=== PATIENT | female | born 1980 | race Caucasian/White ===

== ENCOUNTER 2016-12-11 07:59 | Emergency (ER) | payer OTHER ==
--- NOTE | 2016-12-11 10:43 | DIAGNOSTIC IMAGING REPORT ---
PROCEDURE: US OB 1ST TRIMESTER W/TRANSVAG INDICATION: ABNORMAL BLEEDING TECHNIQUE: Akins scale, color, and spectral Doppler transabdominal sonographic images of the first trimester gravid uterus were obtained. COMPARISON: None. FINDINGS: TRANSABDOMINAL SCANS: The gravid uterus contains a fundal gestational sac with a moderate residual response. No perigestational hemorrhage. The cervix is closed. Gestational sac measures 12 mm which corresponds to 6 weeks and 1 day A yolk sac was visible. Maternal ovaries appear normal with a corpus luteum cyst visualized on the right ovary. No free pelvic fluid. IMPRESSION: 1. Single intrauterine gestational sac with gestational age of 6 weeks and 1 day and estimated due date of 08/05/2018 2. Closed cervix and no perigestational hemorrhage.
--- NOTE | 2016-12-11 11:29 | ED CLINICAL REPORT ---
Clinical Report - Physicians/Mid Levels [facility] [address] [place] [address] 12/11/2016 7:59 Patient: LEON FALK Time Seen: 08:38 Lambert 19 2016. Arrived- By private vehicle. Historian- patient. Note: (HX: Currently : 9 weeks .). HISTORY OF PRESENT ILLNESS Chief Complaint: VAGINAL BLEEDING. This started today 1st . Has not had OB US yet. and still present. The symptoms are described as moderate. Modifying factors. Not worsened by anything. Not relieved by anything. The patient has had abnormal bleeding. No abdominal pain, pelvic pain, vaginal pain, low back pain or flank pain. No vaginal discharge, pain with urination, urinary frequency, urgency of urination or hematuria. Similar symptoms previously: None. Recent medical care: Not recently seen/assessed. REVIEW OF SYSTEMS No nausea, vomiting, diarrhea, urinary frequency or hematuria. No pelvic pain, vaginal discharge or difficulty with urination. All systems otherwise negative, except as recorded above. PAST HISTORY ( Migraine Headache. Anxiety Reaction.). Additional Surgeries: no known surgeries. Medications: CeleXA Oral 10mg, daily. Allergies: Erythromycin. SOCIAL HISTORY Never smoker. No alcohol use or drug use. ADDITIONAL NOTES The nursing notes have been reviewed. PHYSICAL EXAM Vital Signs: 12/11/2016 08:09 BP: 122/76. HR: 96. RR: 14. O2 saturation: 99%. Temp: 98.5 F. Pain level now: 0/10. Have been reviewed as normal. Appearance: Alert. Oriented X3. No acute distress. HEENT: Normal external inspection. ENT: Pharynx normal. CVS: Heart sounds normal. Rate normal. Rhythm normal. Respiratory: No respiratory distress. Breath sounds normal. Abdomen: Soft and nontender. Bowel sounds normal. No organomegaly. No mass. : Slight vaginal bleeding, consisting of dark blood, via the cervical os. No vaginal discharge. Cervical os closed. No tissue present. No cervicitis. No herpes-like lesions. Bimanual exam normal. (Female Aubrey Morel present for exam). Skin: Skin warm and dry. Normal skin color. No rash. Neuro: Oriented X 3. LABS, X-RAYS, AND EKG Pelvic Sonogram: Single intrauterine gestational sac with gestational age of 6 weeks and 1 day and estimated due date of 08/05/2018 2. Closed cervix and no perigestational hemorrhage. Study type: bedside transvaginal and obstetrical evaluation. The study was interpreted by the radiologist and discussed with the radiologist. Prior studies were not available for comparison. Laboratory Tests: UA-Culture if indicated: (OZZY: 12/11/2016 08:20) ( [facility] 12/11/2016 08:44) Final results Test Result Flag Units (Reference) URINE COLOR YELLOW URINE APPEARANCE CLEAR URINE GLUCOSE NEGATIVE (NEGATIVE) URINE BILIRUBIN NEGATIVE (NEGATIVE) URINE KETONE NEGATIVE (NEGATIVE) URINE SPECIFIC GRAVITY 1.015 (1.010-1.030) URINE PH 8.0 (5.0-8.0) URINE PROTEIN NEGATIVE (NEGATIVE) URINE UROBILINOGEN 0.2 EU/dL (0.2-1.0) URINE NITRITE NEGATIVE (NEGATIVE) URINE BLOOD TRACE-INTACT (NEGATIVE) URINE LEUK ESTERASE NEGATIVE (NEGATIVE) URINE RBC NONE SEEN rbc/hpf (0-1) URINE WBC 0-1 wbc/hpf (0-1) URINE EPITHELIAL CELLS 0-1 EPI/hpf (0-5) URINE BACTERIA TRACE (<1+) (NONE SEEN) URINE COMMENT CULT NOT INDICATED URINE CULTURES ARE SET-UP BASED ON THE FOLLOWING CRITERIA:POSITIVE NITRITEPOSITIVE LEUKOCYTE ESTERASEGREATER THAN 10 WHITE BLOOD CELLSMODERATE (2+) OR GREATER BACTERIA Urine: (OZZY: 12/11/2016 08:20) ( [facility] 12/11/2016 08:34) Final results Test Result Flag Units (Reference) URINE POSITIVE CBC w Diff: (OZZY: 12/11/2016 09:04) ( [facility] 12/11/2016 09:18) Final results Test Result Flag Units (Reference) WHITE BLOOD COUNT 8.4 K/uL (4.5-11.5) RED BLOOD COUNT 4.67 M/uL (4.00-5.20) HEMOGLOBIN 14.3 gm/dL (12.0-16.0) HEMATOCRIT 42.9 % (36.0-46.0) MEAN CELL VOLUME 92 fL (80-100) MEAN CORPUSCULAR HGB 31 pg (26-34) MEAN CORPUSCULAR HGB CONC 33 g/dL (31-37) RED CELL DISTRIBUTION WIDTH 13.4 % (11.6-14.8) PLATELET COUNT 322 K/uL (150-400) LYMPH % 31.7 % (25-40) MONO % 3.0 % (3-14) GRANULOCYTE % 65.3 (53-90) Serum Quantitative: (OZZY: 12/11/2016 09:04) ( [facility] 12/11/2016 09:57) Final results Test Result Flag Units (Reference) BETA HCG, QUANTITATIVE 4172 mIU/mL REFERENCE RANGE:Adult Males: <2 mIU/mLNon- Females: <6 mIU/mL Females:Approximate Approximate hCGGestational Age Range (mIU/mL) 0-1 week 0-501-2 weeks 40-3002-3 weeks 100-29665-0 weeks 500-40044-1 months 5,000-200,0002-3 months 10,000-100,0002nd trimester 3,000-50,0003rd trimester 1,000-50,000 Type & Rh: (OZZY: 12/11/2016 09:04) ( [facility] 12/11/2016 09:33) Final results Test Result Flag Units (Reference) PATIENT BLOOD TYPE A Positive . PROGRESS AND PROCEDURES Disposition: Discharged home in good condition. Condition: good. CLINICAL IMPRESSION Mild vaginal bleeding. INSTRUCTIONS (Have your labs drawn on Sunday. Return with increased bleeding or lower abdominal pain). Your Current Medications: CONTINUE TAKING THE FOLLOWING MEDICATIONS: CeleXA Oral : 10mg daily. Follow-up: Follow up with your doctor Sunday as scheduled. Screening today revealed the patient's blood pressure to be in the normal range. (Electronically signed by Emmanuel Briceño Dr. 12/11/2016 16:24)
--- NOTE | 2016-12-11 11:29 | ED CLINICAL REPORT ---
Clinical Report - Physicians/Mid Levels [facility] [address] [place] [address] 12/11/2016 7:59 Patient: LEON FALK Time Seen: 08:38 Lambert 19 2016. Arrived- By private vehicle. Historian- patient. Note: (HX: Currently : 9 weeks .). HISTORY OF PRESENT ILLNESS Chief Complaint: VAGINAL BLEEDING. This started today 1st . Has not had OB US yet. and still present. The symptoms are described as moderate. Modifying factors. Not worsened by anything. Not relieved by anything. The patient has had abnormal bleeding. No abdominal pain, pelvic pain, vaginal pain, low back pain or flank pain. No vaginal discharge, pain with urination, urinary frequency, urgency of urination or hematuria. Similar symptoms previously: None. Recent medical care: Not recently seen/assessed. REVIEW OF SYSTEMS No nausea, vomiting, diarrhea, urinary frequency or hematuria. No pelvic pain, vaginal discharge or difficulty with urination. All systems otherwise negative, except as recorded above. PAST HISTORY ( Migraine Headache. Anxiety Reaction.). Additional Surgeries: no known surgeries. Medications: CeleXA Oral 10mg, daily. Allergies: Erythromycin. SOCIAL HISTORY Never smoker. No alcohol use or drug use. ADDITIONAL NOTES The nursing notes have been reviewed. PHYSICAL EXAM Vital Signs: 12/11/2016 08:09 BP: 122/76. HR: 96. RR: 14. O2 saturation: 99%. Temp: 98.5 F. Pain level now: 0/10. Have been reviewed as normal. Appearance: Alert. Oriented X3. No acute distress. HEENT: Normal external inspection. ENT: Pharynx normal. CVS: Heart sounds normal. Rate normal. Rhythm normal. Respiratory: No respiratory distress. Breath sounds normal. Abdomen: Soft and nontender. Bowel sounds normal. No organomegaly. No mass. : Slight vaginal bleeding, consisting of dark blood, via the cervical os. No vaginal discharge. Cervical os closed. No tissue present. No cervicitis. No herpes-like lesions. Bimanual exam normal. (Female Aubrey Morel present for exam). Skin: Skin warm and dry. Normal skin color. No rash. Neuro: Oriented X 3. LABS, X-RAYS, AND EKG Pelvic Sonogram: Single intrauterine gestational sac with gestational age of 6 weeks and 1 day and estimated due date of 08/05/2018 2. Closed cervix and no perigestational hemorrhage. Study type: bedside transvaginal and obstetrical evaluation. The study was interpreted by the radiologist and discussed with the radiologist. Prior studies were not available for comparison. Laboratory Tests: UA-Culture if indicated: (OZZY: 12/11/2016 08:20) ( [facility] 12/11/2016 08:44) Final results Test Result Flag Units (Reference) URINE COLOR YELLOW URINE APPEARANCE CLEAR URINE GLUCOSE NEGATIVE (NEGATIVE) URINE BILIRUBIN NEGATIVE (NEGATIVE) URINE KETONE NEGATIVE (NEGATIVE) URINE SPECIFIC GRAVITY 1.015 (1.010-1.030) URINE PH 8.0 (5.0-8.0) URINE PROTEIN NEGATIVE (NEGATIVE) URINE UROBILINOGEN 0.2 EU/dL (0.2-1.0) URINE NITRITE NEGATIVE (NEGATIVE) URINE BLOOD TRACE-INTACT (NEGATIVE) URINE LEUK ESTERASE NEGATIVE (NEGATIVE) URINE RBC NONE SEEN rbc/hpf (0-1) URINE WBC 0-1 wbc/hpf (0-1) URINE EPITHELIAL CELLS 0-1 EPI/hpf (0-5) URINE BACTERIA TRACE (<1+) (NONE SEEN) URINE COMMENT CULT NOT INDICATED URINE CULTURES ARE SET-UP BASED ON THE FOLLOWING CRITERIA:POSITIVE NITRITEPOSITIVE LEUKOCYTE ESTERASEGREATER THAN 10 WHITE BLOOD CELLSMODERATE (2+) OR GREATER BACTERIA Urine: (OZZY: 12/11/2016 08:20) ( [facility] 12/11/2016 08:34) Final results Test Result Flag Units (Reference) URINE POSITIVE CBC w Diff: (OZZY: 12/11/2016 09:04) ( [facility] 12/11/2016 09:18) Final results Test Result Flag Units (Reference) WHITE BLOOD COUNT 8.4 K/uL (4.5-11.5) RED BLOOD COUNT 4.67 M/uL (4.00-5.20) HEMOGLOBIN 14.3 gm/dL (12.0-16.0) HEMATOCRIT 42.9 % (36.0-46.0) MEAN CELL VOLUME 92 fL (80-100) MEAN CORPUSCULAR HGB 31 pg (26-34) MEAN CORPUSCULAR HGB CONC 33 g/dL (31-37) RED CELL DISTRIBUTION WIDTH 13.4 % (11.6-14.8) PLATELET COUNT 322 K/uL (150-400) LYMPH % 31.7 % (25-40) MONO % 3.0 % (3-14) GRANULOCYTE % 65.3 (53-90) Serum Quantitative: (OZZY: 12/11/2016 09:04) ( [facility] 12/11/2016 09:57) Final results Test Result Flag Units (Reference) BETA HCG, QUANTITATIVE 4172 mIU/mL REFERENCE RANGE:Adult Males: <2 mIU/mLNon- Females: <6 mIU/mL Females:Approximate Approximate hCGGestational Age Range (mIU/mL) 0-1 week 0-501-2 weeks 40-3002-3 weeks 100-32782-7 weeks 500-81275-5 months 5,000-200,0002-3 months 10,000-100,0002nd trimester 3,000-50,0003rd trimester 1,000-50,000 Type & Rh: (OZZY: 12/11/2016 09:04) ( [facility] 12/11/2016 09:33) Final results Test Result Flag Units (Reference) PATIENT BLOOD TYPE A Positive . PROGRESS AND PROCEDURES Disposition: Discharged home in good condition. Condition: good. CLINICAL IMPRESSION Mild vaginal bleeding. INSTRUCTIONS (Have your labs drawn on Sunday. Return with increased bleeding or lower abdominal pain). Your Current Medications: CONTINUE TAKING THE FOLLOWING MEDICATIONS: CeleXA Oral : 10mg daily. Follow-up: Follow up with your doctor Sunday as scheduled. Screening today revealed the patient's blood pressure to be in the normal range. (Electronically signed by Emmanuel Briceño Dr. 12/11/2016 16:24)
--- NOTE | 2016-12-11 11:29 | ED NURSING NOTES ---
Clinical Report - Nurses [facility] [address] [place] [address] 12/11/2016 7:59 Patient: LEON FALK TRIAGE Triage time 08:10. Acuity: LEVEL 3. Chief Complaint: SPOTTING. 08:10 12/11/16. 08:10 12/11/16. Alert. No acute distress. --08:13 Ciaran Seals R.N. 08:09 12/11/16. BP: 122/76. HR: 96. RR: 14. O2 saturation: 99% on room air. Temp: 98.5 F (oral). Pain level now: 0/10. --08:13 Ciaran Seals R.N. Chief Complaint: (Vaginal Discharge). --08:15 Ciaran Seals R.N. Weight: 70.3 kg stated. Height/Length: 63 inches Per Patient. BMI: 27.5. --08:10 Ciaran Seals R.N. Medications CeleXA Oral 10mg, daily. --08:12 Ciaran Seals R.N. Medication/allergy information source: the patient. --08:13 Ciaran Seals R.N. Allergies Erythromycin. --08:12 Ciaran Seals R.N. History Arrived by private vehicle. Primary physician (PCP-Delvis ([facility])). 08:10 12/11/16. This started yesterday. No vomiting. 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 PAST MEDICAL HX: Immunizations: up-to-date. Last normal menstrual period- Ended the middle of September. Confirmed . In 1st trimester. confirmed with home test and urine test. SOCIAL HX: No alcohol use or drug use. No infectious disease exposure. ABUSE ASSESSMENT: No report of abuse. FALL RISK ASSESSMENT: Fall risk assessment completed. No fall risk identified. NUTRITIONAL RISK ASSESSMENT: The nutritional risk assessment revealed no deficiencies. FUNCTIONAL ASSESSMENT: Functional assessment: no impairments noted. LEARNING NEEDS ASSESSMENT: The learning needs assessment revealed no barriers. SKIN INTEGRITY ASSESSMENT: Skin integrity risk assessment completed. No skin integrity risk identified. --08:13 Ciaran Seals R.N. PAST MEDICAL HX: Currently : 9 weeks . --08:16 Ciaran Seals R.N. PROBLEMS: Migraine Headache. Anxiety Reaction. --08:13 Ciaran Seals R.N. ADDITIONAL SURGERIES: no known surgeries. Assessment 08:10 12/11/16. --08:13 Ciaran Seals R.N. Interventions 08:12/11/16. 08:10 12/11/16. ID and allergy band on patient. To treatment room. --08:13 Ciaran Seals R.N. PHYSICAL ASSESSMENT 08:12/11/16. Ambulatory to room. GENERAL / NEURO / PSYCH: Alert. Oriented X 4. Appears in no acute distress. RESPIRATORY: Respirations not labored. CVS: Capillary refill less than 2 seconds. SKIN: Skin is warm and dry. --08:13 Ciaran Seals R.N. NURSING PROGRESS NOTES 08:12/11/16. The plan of care for this patient has been created. Patient gowned. Head of bed elevated. Reassurance given. Two patient identifiers checked. Call light placed in reach. Side rails up x 2. Bed placed in lowest position. Brakes of bed on. --08:13 Ciaran Seals R.N. 08:13 12/11/16. Patient ready for evaluation- chart flagged and notification provided. --08:13 Ciaran Seals R.N. 08:28 12/11/16. Patient ID band checked for patient name and birthdate. Clean catch urine collected with return of yellow-colored urine; sample sent to lab for urinalysis, culture and HCG. Specimen labeled in the presence of the patient. --08:28 Ciaran Seals R.N. 09:00 12/11/16. ( Lab coming to draw blood). --09:00 Ciaran Seals R.N. 09:26 12/11/16. Patient waiting for diagnostic study to be done. --09:27 Ciaran Seals R.N. 10:25 12/11/16. --10:25 Ciaran Seals R.N. 10:25 12/11/16. BP: 119/68. HR: 81. RR: 13. O2 saturation: 99% on room air. --10:25 Ciaran Seals R.N. 10:26 12/11/16. Patient and family informed about reason for wait and about plan of care. --10:26 Ciaran Seals R.N. 10:28 12/11/16. Patient and family informed about reason for wait and about plan of care. --10:28 Ciaran Seals R.N. 10:28 12/11/16. Patient waiting for disposition. --10:28 Ciaran Seals R.N. DISPOSITION / DISCHARGE 11:41 12/11/16. Condition at departure: improved. The goals identified in the patient's plan of care were met. No learning barriers present. Discharge instructions provided and reviewed with the patient and spouse. Reviewed warnings. Reviewed medication(s). Treatments reviewed. Patient verbalized understanding. Written instructions provided in Ivorian. ( Pt aware to get repeat HCG lab draw on DECEMBER 09). The patient was discharged by the physician. She was discharged home and accompanied by family. She left the Emergency Department ambulatory and via private vehicle. Family member driving. FALL RISK ASSESSMENT: Fall risk assessment completed. No fall risk identified. --11:41 Ciaran Seals R.N. 11:40 12/11/16. BP: 119/71. HR: 79. RR: 12. O2 saturation: 99% on room air. Temp: 98.2 F (oral). Pain level now: 08/04. --11:41 Ciaran Seals R.N. 11:41 12/11/16. Departure time: 11:41 Dec 11 2016. --11:41 Ciaran Seals R.N. Locked/Released at 12/11/2016 12:27 by Ciaran Seals R.N.
--- NOTE | 2016-12-11 11:29 | ED NURSING NOTES ---
Clinical Report - Nurses [facility] [address] [place] [address] 12/11/2016 7:59 Patient: LEON FALK TRIAGE Triage time 08:10. Acuity: LEVEL 3. Chief Complaint: SPOTTING. 08:10 12/11/16. 08:10 12/11/16. Alert. No acute distress. --08:13 Ciaran Seals R.N. 08:09 12/11/16. BP: 122/76. HR: 96. RR: 14. O2 saturation: 99% on room air. Temp: 98.5 F (oral). Pain level now: 0/10. --08:13 Ciaran Seals R.N. Chief Complaint: (Vaginal Discharge). --08:15 Ciaran Seals R.N. Weight: 70.3 kg stated. Height/Length: 63 inches Per Patient. BMI: 27.5. --08:10 Ciaran Seals R.N. Medications CeleXA Oral 10mg, daily. --08:12 Ciaran Seals R.N. Medication/allergy information source: the patient. --08:13 Ciaran Seals R.N. Allergies Erythromycin. --08:12 Ciaran Seals R.N. History Arrived by private vehicle. Primary physician (PCP-Delvis ([facility])). 08:10 12/11/16. This started yesterday. No vomiting. 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 PAST MEDICAL HX: Immunizations: up-to-date. Last normal menstrual period- Ended the middle of September. Confirmed . In 1st trimester. confirmed with home test and urine test. SOCIAL HX: No alcohol use or drug use. No infectious disease exposure. ABUSE ASSESSMENT: No report of abuse. FALL RISK ASSESSMENT: Fall risk assessment completed. No fall risk identified. NUTRITIONAL RISK ASSESSMENT: The nutritional risk assessment revealed no deficiencies. FUNCTIONAL ASSESSMENT: Functional assessment: no impairments noted. LEARNING NEEDS ASSESSMENT: The learning needs assessment revealed no barriers. SKIN INTEGRITY ASSESSMENT: Skin integrity risk assessment completed. No skin integrity risk identified. --08:13 Ciaran Seals R.N. PAST MEDICAL HX: Currently : 9 weeks . --08:16 Ciaran Seals R.N. PROBLEMS: Migraine Headache. Anxiety Reaction. --08:13 Ciaran Seals R.N. ADDITIONAL SURGERIES: no known surgeries. Assessment 08:10 12/11/16. --08:13 Ciaran Seals R.N. Interventions 08:12/11/16. 08:10 12/11/16. ID and allergy band on patient. To treatment room. --08:13 Ciaran Seals R.N. PHYSICAL ASSESSMENT 08:12/11/16. Ambulatory to room. GENERAL / NEURO / PSYCH: Alert. Oriented X 4. Appears in no acute distress. RESPIRATORY: Respirations not labored. CVS: Capillary refill less than 2 seconds. SKIN: Skin is warm and dry. --08:13 Ciaran Seals R.N. NURSING PROGRESS NOTES 08:12/11/16. The plan of care for this patient has been created. Patient gowned. Head of bed elevated. Reassurance given. Two patient identifiers checked. Call light placed in reach. Side rails up x 2. Bed placed in lowest position. Brakes of bed on. --08:13 Ciaran Seals R.N. 08:13 12/11/16. Patient ready for evaluation- chart flagged and notification provided. --08:13 Ciaran eSals R.N. 08:28 12/11/16. Patient ID band checked for patient name and birthdate. Clean catch urine collected with return of yellow-colored urine; sample sent to lab for urinalysis, culture and HCG. Specimen labeled in the presence of the patient. --08:28 Ciaran Seals R.N. 09:00 12/11/16. ( Lab coming to draw blood). --09:00 Ciaran Seals R.N. 09:26 12/11/16. Patient waiting for diagnostic study to be done. --09:27 Ciaran Seals R.N. 10:25 12/11/16. --10:25 Ciaran Seals R.N. 10:25 12/11/16. BP: 119/68. HR: 81. RR: 13. O2 saturation: 99% on room air. --10:25 Ciaran Seals R.N. 10:26 12/11/16. Patient and family informed about reason for wait and about plan of care. --10:26 Ciaran Seals R.N. 10:28 12/11/16. Patient and family informed about reason for wait and about plan of care. --10:28 Ciaran Seals R.N. 10:28 12/11/16. Patient waiting for disposition. --10:28 Ciaran Seals R.N. DISPOSITION / DISCHARGE 11:41 12/11/16. Condition at departure: improved. The goals identified in the patient's plan of care were met. No learning barriers present. Discharge instructions provided and reviewed with the patient and spouse. Reviewed warnings. Reviewed medication(s). Treatments reviewed. Patient verbalized understanding. Written instructions provided in Greek. ( Pt aware to get repeat HCG lab draw on DECEMBER 09). The patient was discharged by the physician. She was discharged home and accompanied by family. She left the Emergency Department ambulatory and via private vehicle. Family member driving. FALL RISK ASSESSMENT: Fall risk assessment completed. No fall risk identified. --11:41 Ciaran Seals R.N. 11:40 12/11/16. BP: 119/71. HR: 79. RR: 12. O2 saturation: 99% on room air. Temp: 98.2 F (oral). Pain level now: 08/04. --11:41 Ciaran Seals R.N. 11:41 12/11/16. Departure time: 11:41 Dec 11 2016. --11:41 Ciaran Seals R.N. Locked/Released at 12/11/2016 12:27 by Ciaran Seals R.N.
--- NOTE | 2016-12-11 11:30 | ED ORDER SUMMARY ---
..... Patient: LEON FALK OrderSheet [facility] VisitID: [id number] [address] [place] [address] 36y, F Registration Date/Time: 12/11/2016 ORDER SHEET Weight: 70.3 kg (stated) Allergies: Erythromycin GENERAL ORDERS: UA-Culture if indicated Urgent (08:14 12/11/2016 JBoardley R.N. per protocol) (Ack 8:16 LNations ER Tech1) (8:27 JBoardley R.N.) Urine Urgent (08:14 12/11/2016 JBoardley R.N. per protocol) (Ack 8:16 LNations ER Tech1) (8:27 JBoardley R.N.) US OB 1st Trimester w Transvag (9 weeks ago. ) Urgent (08:45 12/11/2016 Porter BOWER) (Ack 8:51 LNations ER Tech1) (10:09 JBoardley R.N.) CBC w Diff Urgent (08:48 12/11/2016 Porter BOWER) (Ack 8:50 LNations ER Tech1) (9:13 JBoardley R.N.) Type & Rh Urgent (08:48 12/11/2016 Porter BOWER) (Ack 8:51 LNations ER Tech1) (9:13 JBoardley R.N.) Serum Quantitative Urgent (08:48 12/11/2016 Porter BOWER) (Ack 8:51 LNations ER Tech1) (9:13 JBoardley R.N.) Pelvic Exam Setup (09:34 12/11/2016 Constance Clifton) (Ack 9:49 JBoardley R.N.) (10:09 JBoardley R.N.) Wet Prep (Cervix) (cervix) Urgent (10:46 12/11/2016 Constance Clifton) (Ack 10:49 LNations ER Tech1) (11:39 JBoardley R.N.) GC/Chlamydia (Cervix) (...) Urgent (10:46 12/11/2016 Constance Clifton) (Ack 10:49 LNations ER Tech1) (11:39 JBoardley R.N.) MEDICATION ORDERS: IV FLUIDS: ORDER SHEET NOTES: [Electronically signed by Ciaran Seals R.N. (12:12/11/2016)] [Electronically signed by Emmanuel Briceño Dr. (16:24 12/11/2016)] [Electronically locked/signed by Ciaran Seals R.N. (12:12/11/2016)]
--- NOTE | 2016-12-11 11:30 | ED ORDER SUMMARY ---
..... Patient: LEON FALK OrderSheet [facility] VisitID: [id number] [address] [place] [address] 36y, F Registration Date/Time: 12/11/2016 ORDER SHEET Weight: 70.3 kg (stated) Allergies: Erythromycin GENERAL ORDERS: UA-Culture if indicated Urgent (08:14 12/11/2016 JBoardley R.N. per protocol) (Ack 8:16 LNations ER Tech1) (8:27 JBoardley R.N.) Urine Urgent (08:14 12/11/2016 JBoardley R.N. per protocol) (Ack 8:16 LNations ER Tech1) (8:27 JBoardley R.N.) US OB 1st Trimester w Transvag (9 weeks ago. ) Urgent (08:45 12/11/2016 Porter BOWER) (Ack 8:51 LNations ER Tech1) (10:09 JBoardley R.N.) CBC w Diff Urgent (08:48 12/11/2016 Porter BOWER) (Ack 8:50 LNations ER Tech1) (9:13 JBoardley R.N.) Type & Rh Urgent (08:48 12/11/2016 Porter BOWER) (Ack 8:51 LNations ER Tech1) (9:13 JBoardley R.N.) Serum Quantitative Urgent (08:48 12/11/2016 Porter BOWER) (Ack 8:51 LNations ER Tech1) (9:13 JBoardley R.N.) Pelvic Exam Setup (09:34 12/11/2016 Constance Clifton) (Ack 9:49 JBoardley R.N.) (10:09 JBoardley R.N.) Wet Prep (Cervix) (cervix) Urgent (10:46 12/11/2016 Constance Clifton) (Ack 10:49 LNations ER Tech1) (11:39 JBoardley R.N.) GC/Chlamydia (Cervix) (...) Urgent (10:46 12/11/2016 Constance Clifton) (Ack 10:49 LNations ER Tech1) (11:39 JBoardley R.N.) MEDICATION ORDERS: IV FLUIDS: ORDER SHEET NOTES: [Electronically signed by Ciaran Seals R.N. (12:12/11/2016)] [Electronically signed by Emmanuel Briceño Dr. (16:24 12/11/2016)] [Electronically locked/signed by Ciaran Seals R.N. (12:12/11/2016)]
--- NOTE | 2016-12-11 16:24 | ED MAR SUMMARY ---
..... Medication Administration Record [facility] [address], [place] [id number] Patient: LEON FALK Visit ID: [id number] 36y, F Weight: 70.3 kg Height/Length: 63 in BMI: 27.5 ALLERGIES: Erythromycin
--- NOTE | 2016-12-11 16:24 | ED MED RECONCILIATION SUMMARY ---
Patient: LEON FALK Medication Reconciliation Report [facility] VisitID: [id number] [address] [place] [place] [address] 36y, F Registration Date/Time: 12/11/2016 Weight: 70.3 kg Height/Length: 63 in. BMI: 27.5 ALLERGIES: Erythromycin The patient's Home Medications are listed below: CONTINUE TAKING THE FOLLOWING MEDICATIONS: CeleXA Oral 10mg, daily The source(s) of the original Home Medication information: patient The following Medications were given to the patient in the Emergency Department: None. The following Medications were prescribed to the patient: None.
--- NOTE | 2016-12-11 16:24 | ED DISCHARGE INSTRUCTIONS ---
Patient: LEON FALK General Instructions [facility] VisitID: [id number] [place] [address] 36y, F Registration Date/Time: 12/11/2016 Mild vaginal bleeding. INSTRUCTIONS (Have your labs drawn on Sunday. Return with increased bleeding or lower abdominal pain). Your Current Medications: CONTINUE TAKING THE FOLLOWING MEDICATIONS: CeleXA Oral : 10mg daily. Follow-up: Follow up with your doctor Sunday as scheduled. Screening today revealed the patient's blood pressure to be in the normal range. ADDITIONAL INFORMATION Irregular Vaginal Bleeding This is a condition in which bleeding occurs at unexpected times of the month. The bleeding may be heavier or head control clerk than usual. Heavy bleeding may lead to anemia. If severe enough, anemia may cause you to look pale and feel weak or fatigued. You might have shortness of breath even with little exertion. The female hormones produced in your body every month may be out of balance. This imbalance leads to bleeding. Causes could include an ovarian cyst, emotional stress, pelvic infection. Failure to ovulate during your last cycle may also cause this problem. Home Care: If bleeding is heavy, rest and avoid heavy exertion. You may use acetaminophen (Tylenol) or ibuprofen (Motrin, Advil) to control pain, unless another pain medicine was prescribed. [NOTE: If you have chronic liver or kidney disease or ever had a stomach ulcer or GI bleeding, talk with your doctor before using these medicines.] Iron supplements may be prescribed for anemia. It takes about 4-6 weeks for the iron to correct the anemia. Take the medicine as directed. See your doctor for a repeat blood test after you finish the iron treatment. If hormones were prescribed to control your bleeding, take them exactly as directed. If you were prescribed a medicine called Provera (medroxyprogesterone), the bleeding should stop while you are taking it. Another period will start a few days after you finish the medicine. Follow Up with your doctor, or as advised, within the next 1-2 days if heavy bleeding continues. Otherwise, follow up within the next 1-2 weeks. Get Prompt Medical Attention if any of the following occur: Bleeding becomes heavy (soaking one pad an hour for three hours) Fever of 100.4F (38C) or higher, or as directed by your healthcare provider Increase in abdominal pain Weakness, dizziness or fainting You have been given the following additional information: Dysfunctional Uterine Bleeding (Electronically signed by Emmanuel Briceño Dr. 12/11/2016 16:24)
--- NOTE | 2016-12-11 16:24 | ED DISCHARGE INSTRUCTIONS ---
Patient: LEON FALK General Instructions [facility] VisitID: [id number] [place] [address] 36y, F Registration Date/Time: 12/11/2016 Mild vaginal bleeding. INSTRUCTIONS (Have your labs drawn on Sunday. Return with increased bleeding or lower abdominal pain). Your Current Medications: CONTINUE TAKING THE FOLLOWING MEDICATIONS: CeleXA Oral : 10mg daily. Follow-up: Follow up with your doctor Sunday as scheduled. Screening today revealed the patient's blood pressure to be in the normal range. ADDITIONAL INFORMATION Irregular Vaginal Bleeding This is a condition in which bleeding occurs at unexpected times of the month. The bleeding may be heavier or per diem physical therapist assistant than usual. Heavy bleeding may lead to anemia. If severe enough, anemia may cause you to look pale and feel weak or fatigued. You might have shortness of breath even with little exertion. The female hormones produced in your body every month may be out of balance. This imbalance leads to bleeding. Causes could include an ovarian cyst, emotional stress, pelvic infection. Failure to ovulate during your last cycle may also cause this problem. Home Care: If bleeding is heavy, rest and avoid heavy exertion. You may use acetaminophen (Tylenol) or ibuprofen (Motrin, Advil) to control pain, unless another pain medicine was prescribed. [NOTE: If you have chronic liver or kidney disease or ever had a stomach ulcer or GI bleeding, talk with your doctor before using these medicines.] Iron supplements may be prescribed for anemia. It takes about 4-6 weeks for the iron to correct the anemia. Take the medicine as directed. See your doctor for a repeat blood test after you finish the iron treatment. If hormones were prescribed to control your bleeding, take them exactly as directed. If you were prescribed a medicine called Provera (medroxyprogesterone), the bleeding should stop while you are taking it. Another period will start a few days after you finish the medicine. Follow Up with your doctor, or as advised, within the next 1-2 days if heavy bleeding continues. Otherwise, follow up within the next 1-2 weeks. Get Prompt Medical Attention if any of the following occur: Bleeding becomes heavy (soaking one pad an hour for three hours) Fever of 100.4F (38C) or higher, or as directed by your healthcare provider Increase in abdominal pain Weakness, dizziness or fainting You have been given the following additional information: Dysfunctional Uterine Bleeding (Electronically signed by Emmanuel Briceño Dr. 12/11/2016 16:24)
--- NOTE | 2016-12-11 16:24 | ED MED RECONCILIATION SUMMARY ---
Patient: LEON FALK Medication Reconciliation Report [facility] VisitID: [id number] [address] [place] [place] [address] 36y, F Registration Date/Time: 12/11/2016 Weight: 70.3 kg Height/Length: 63 in. BMI: 27.5 ALLERGIES: Erythromycin The patient's Home Medications are listed below: CONTINUE TAKING THE FOLLOWING MEDICATIONS: CeleXA Oral 10mg, daily The source(s) of the original Home Medication information: patient The following Medications were given to the patient in the Emergency Department: None. The following Medications were prescribed to the patient: None.
--- NOTE | 2016-12-11 16:24 | ED MAR SUMMARY ---
..... Medication Administration Record [facility] [address] [place], [place] [id number] Patient: LEON FALK Visit ID: [id number] 36y, F Weight: 70.3 kg Height/Length: 63 in BMI: 27.5 ALLERGIES: Erythromycin
== END 2016-12-11 11:41 | disposition home or self-care (01) ==
LOC: ED SRH 07:59
DX: O20.9 Hemorrhage in early pregnancy, unspecified (principal); Z3A.09 9 weeks gestation of pregnancy; Z79.899 Other long term (current) drug therapy; Z88.1 Allergy status to other antibiotic agents
CPT/HCPCS: 90001; 90004; 90074; 90155; 90195; 90197; 91227; 91228; 93070; 95059